=== PATIENT | male | born 1955 ===

== ENCOUNTER → 2018-12-22 15:58 | Outpatient (CLI) | payer OTHER | END | disposition home or self-care (01) | LOC: LAB 15:58 | DX: R97.20 Elevated prostate specific antigen [PSA] (principal) ==

== ENCOUNTER 2019-06-29 07:24 | Outpatient (CLI) | payer OTHER | END 2019-06-29 07:31 | disposition home or self-care (01) | LOC: SONOGRAMA 07:24 | DX: R97.20 Elevated prostate specific antigen [PSA] (principal) ==